=== PATIENT | female | born 1950 | race Caucasian/White ===

== ENCOUNTER 2017-02-11 10:13 | Day surgery (SDC) | payer MEDICARE, OTHER ==
[~2017-02-11 10:13] MED LIST: Acetaminophen TAB* 325 MG PO PRN; Buffered Lidocaine 0.9% SYRIN* 5 ML/SYR SYRINGE INTRADERM ONE
[2017-02-11] MEDS ORDERED: Midazolam* 1 MG/ML 5 ML VIAL (5 MG) ONE (11:19)
[2017-02-11] MEDS ORDERED: fentaNYL* 50 MCG/ML 2 ML VIAL (100 MCG VIAL) ONE (11:19)
[2017-02-11 12:31] VITALS: BP 130/80
[2017-02-11] MEDS ORDERED: Phenylephrine 2.5% OPTH.SOL* 2 ML BTL ONE (14:14)
[2017-02-11] MEDS ORDERED: Cyclopentolate 1% OPTH.SOL* 2 ML BTL ONE (14:14)
[2017-02-11] MEDS ORDERED: Lidocaine 1% MPF* 2 ML VIAL ONE (14:14)
[2017-02-11] MEDS ORDERED: Neomycin/Polymy/Dex OPHTH.OIN* 3.5 GM ONE (14:14)
[2017-02-11] MEDS ORDERED: Tropicamide 1% OPTH.SOL* BTL ONE (14:15)
[2017-02-11] MEDS ORDERED: Buffered Lidocaine 0.9% SYRIN* 5 ML/SYR SYRINGE ONE (14:15)
[2017-02-11] MEDS ORDERED: Tetracaine 0.5% OPTH.SOL 4 ML* 1 DROP BTL ONE (14:15)
[2017-02-11] MEDS ORDERED: Ketorolac 0.5% OPHTH (NF) 0.5 % 5 ML BTL ONE (14:15)
--- NOTE | 2017-02-12 00:12 | OP ---
DATE OF OPERATION: 02/11/17 [facility] DATE OF : 46 SURGEON: Dr. Ron Hinojosa. DIGITAL SALES ASSISTANT: None. ANESTHESIA: Topical with intravenous sedation. PRE-OP DIAGNOSIS: Cataract, left eye. POST-OP DIAGNOSIS: Cataract, left eye. OPERATIVE PROCEDURE: Phacoemulsification and cataract extraction with posterior chamber intraocular lens implant, left eye. COMPLICATIONS: None. BLOOD LOSS: None. DESCRIPTION OF PROCEDURE: The patient was brought to the operating room and received a small amount of intravenous sedation. A drop of Tetracaine was placed in her left eye. She was prepped and draped in the usual sterile fashion for ophthalmic surgery and attention was directed to the left eye where a speculum was placed. A paracentesis was created at the 5 o'clock position and 0.1 cc of 1 percent preservative-free Lidocaine was injected into the anterior chamber followed by DisCoVisc. The eye was digitally stabilized while a 2.75 mm keratome was used to create a triplanar clear corneal incision at the 3 o'clock position. A continuous curvilinear capsulorrhexis was created with a cystotome and Utrata forceps. BSS on a cannula was used to hydrodissect the lens from the capsule. Phacoemulsification was performed in a divide-and- conquer technique to create four fragments which were removed. Residual cortical material was removed with irrigation and aspiration. DisCoVisc was used to inflate the capsular bag and an AU00T0 23.0 diopter lens was folded and inserted into the capsular bag. DisCoVisc was removed using irrigation and aspiration. BSS on a cannula was used to hydrate the corneal stroma and seal the wound. At the end of the case the pupil was round and the lens was centered. The eye was of normal pressure and the wound was water tight. The speculum was removed and topical Maxitrol ointment was placed on the surface of the eye. The eye was closed, patched and shielded and the patient was sent to the recovery room in stable condition with post operative instructions and follow-up appointment given. [id number] #: [id number] YANIRA
== END 2017-02-11 12:25 | disposition home or self-care (01) ==
LOC: OREAST 10:13
PROVIDERS: ATTEND Ophthalmology
DX: H25.12 Age-related nuclear cataract, left eye (principal); F17.200 Nicotine dependence, unspecified, uncomplicated; Z85.3 Personal history of malignant neoplasm of breast
CPT/HCPCS: A9270-GY; J2250; J3010; V2632

== ENCOUNTER 2019-09-22 07:30 | Inpatient (IN) ==
[~2019-09-22 07:30] MED LIST changes: -Acetaminophen TAB* 325 MG PO PRN; -Buffered Lidocaine 0.9% SYRIN* 5 ML/SYR SYRINGE INTRADERM ONE; +Lactated Ringers 1000 ml BAG 1,000 ML IV SCH
[2019-09-22] MEDS ORDERED: ceFAZolin 2 GM PREMIX in ORs 2 GM/50 ML BAG ONE ×2 (12:21→20:23)
[2019-09-22] MEDS ORDERED: Levalbuterol 1.25MG/0.5ML NEB.SOL INH ONE (13:43)
[2019-09-22] MEDS ORDERED: Levalbuterol 1.25MG/0.5ML NEB.SOL ONE (14:21)
[2019-09-22] MEDS ORDERED: Bupivacaine 0.25% w/EPI 10 ML SDV ONE (14:26)
[2019-09-22] MEDS ORDERED: Bacitracin INJECTION 50,000 UNITS ONE ×2 (14:26→23:47)
[2019-09-22] MEDS ORDERED: Remifentanil 2 MG VIAL ONE ×3 (14:54→23:50)
[2019-09-22] MEDS ORDERED: Midazolam 2 mg/2 ml VIAL 1 mg/ml 2 ml VIAL (2 mg) ONE (15:18)
[2019-09-22] MEDS ORDERED: fentaNYL 100 mcg/2 ml 50 MCG/ML VIAL ONE ×2 (15:18→21:55)
[2019-09-22] MEDS ORDERED: Rocuronium 50 mg VIAL 10 mg/ml 5 ml VIAL (50 mg) ONE ×2 (15:20→15:27)
[2019-09-22] MEDS ORDERED: Lidocaine 2% JELLY 6 ML TOPICAL ONE (15:27)
[2019-09-22] MEDS ORDERED: DiMENhydriNATE IV 50 mg/ml 1 ml VIAL IV PUSH PRN (18:14)
[2019-09-22] MEDS ORDERED: Acetaminophen IV 1 GM/100ML 1,000 MG/100 ML VIAL IVPB ONE (18:14)
[2019-09-22] MEDS ORDERED: fentaNYL 100 mcg/2 ml 50 MCG/ML VIAL IV PRN (18:14)
[2019-09-22] MEDS ORDERED: Levalbuterol 1.25MG/0.5ML NEB.SOL INH PRN (18:14)
[2019-09-22] MEDS ORDERED: Naloxone 0.4 mg VIAL 0.4 mg/ml 1 ml VIAL IV PRN (18:14)
[2019-09-22] MEDS ORDERED: Ondansetron 4 mg VIAL 2 MG/ML 2 ml VIAL IV PRN (18:14)
[2019-09-22] MEDS ORDERED: Phenylephrine 40 mcg/mL 10mL (400mcg) SYRINGE ONE ×3 (22:51→22:59)
[2019-09-23] MEDS ORDERED: HYDROcodone/ACETAMIN 5/325 mg TAB PO PRN (01:33)
[2019-09-23] MEDS ORDERED: Ondansetron 4 mg VIAL 2 MG/ML 2 ml VIAL IV PRN (01:33)
[2019-09-23] MEDS ORDERED: Magnesium Hydroxide LIQ 30 ML UDC PO PRN (01:33)
[2019-09-23] MEDS ORDERED: HYDROmorphone 1 MG/1 ML SYRINGE ONE (01:36)
[2019-09-23] MEDS: HYDROmorphone 1 MG/1 ML SYRINGE IV PRN ×5 (01:40→02:00)
[2019-09-23] MEDS ORDERED: Senna TAB 8.6 mg TAB PO PRN (02:15)
[2019-09-23] MEDS ORDERED: Albuterol 2.5mg/3 ml (0.083%) NEB.SOLN INH PRN (02:17)
[2019-09-23] MEDS: HYDROcodone/ACETAMIN 5/325 mg TAB PO PRN ×3 (04:04→12:45)
[2019-09-23] MEDS: Lactated Ringers 1000 ml BAG 1,000 ML IV SCH ×2 (04:29→04:31)
[2019-09-23] MEDS: Pregabalin 25 mg CAP (*) PO SCH (08:23)
[2019-09-23] MEDS: Mometasone/Formoter 200/5 MDI INH SCH ×2 (08:24→19:34)
[2019-09-23] MEDS ORDERED: Nicotine Lozenge mini 2 MG LOZNG.MINI MT PRN (08:58)
[2019-09-23] MEDS ORDERED: Prochlorperazine 5 mg/ml 2 ml VIAL (10 mg) IV PRN (13:16)
[2019-09-23] MEDS ORDERED: Prochlorperazine 5 mg/ml 2 ml VIAL (10 mg) ONE (13:16)
[2019-09-23] MEDS ORDERED: oxyCODONE/Acetamin 5/325 mg TAB PO PRN (17:34)
[2019-09-23] MEDS: oxyCODONE/Acetamin 5/325 mg TAB PO PRN (22:46)
[2019-09-24] MEDS: Lactated Ringers 1000 ml BAG 1,000 ML IV SCH (01:28)
[2019-09-24] MEDS: oxyCODONE/Acetamin 5/325 mg TAB PO PRN (06:36)
[2019-09-24 08:24] VITALS: BP 127/67
[2019-09-24] MEDS: Pregabalin 25 mg CAP (*) PO SCH (08:27)
[2019-09-24] MEDS: Mometasone/Formoter 200/5 MDI INH SCH (08:28)
== END 2019-09-24 09:33 | DRG 460 ==
LOC: AA 11:29 → SSU 09-23 03:31
PROVIDERS: ADMIT Neurological Surgery; ATTEND Neurological Surgery

== ENCOUNTER 2019-09-24 08:30 | Inpatient (IN) ==
[2019-09-24] MEDS ORDERED: Senna TAB 8.6 mg TAB PO PRN (10:48)
[2019-09-24] MEDS: oxyCODONE/Acetamin 5/325 mg TAB PO PRN ×2 (12:54→18:28)
[2019-09-24] MEDS ORDERED: Albuterol HFA INHALER 8 gm MDI INH PRN (17:18)
[2019-09-24] MEDS: Pregabalin 25 mg CAP (*) PO SCH (20:19)
[2019-09-24] MEDS: Mometasone/Formoter 200/5 MDI INH SCH (20:22)
[2019-09-25] MEDS: oxyCODONE/Acetamin 5/325 mg TAB PO PRN ×6 (00:30→22:45)
[2019-09-25] MEDS: Mometasone/Formoter 200/5 MDI INH SCH ×2 (08:30→20:12)
[2019-09-25] MEDS: Pregabalin 25 mg CAP (*) PO SCH ×2 (08:33→20:08)
[2019-09-25] MEDS ORDERED: oxyCODONE SR 20 mg TAB (*) PO SCH (21:00)
[2019-09-26] MEDS: oxyCODONE/Acetamin 5/325 mg TAB PO PRN ×3 (03:33→14:03)
[2019-09-26] MEDS: Ondansetron ODT 4 mg TAB 4 MG TAB SL PRN ×2 (08:10→16:57)
[2019-09-26] MEDS ORDERED: diPHENhydraMINE 25 mg TAB PO ONE (08:50)
[2019-09-26] MEDS: Mometasone/Formoter 200/5 MDI INH SCH (09:10)
[2019-09-26] MEDS: Pregabalin 25 mg CAP (*) PO SCH (09:11)
[2019-09-26] MEDS ORDERED: Sodium Phosphate ADULT ENEMA 133 ML BTL PR ONE (14:00)
[2019-09-26] MEDS ORDERED: diPHENhydraMINE 25 mg TAB PO PRN (19:02)
[2019-09-26] MEDS ORDERED: Lactulose 30 ml UDC PO ONE (19:02)
[2019-09-26] MEDS ORDERED: Sodium Phosphate ADULT ENEMA 133 ML BTL PR PRN (19:04)
[2019-09-26] MEDS: D5NS 0.9% 1000 ml BAG 1,000 ML IV SCH (20:04)
[2019-09-26] MEDS: Morphine 2 MG/ML SYRINGE IV PRN (20:06)
[2019-09-27] MEDS: Mometasone/Formoter 200/5 MDI INH SCH ×3 (00:21→21:46)
[2019-09-27] MEDS: Pregabalin 25 mg CAP (*) PO SCH ×3 (00:21→21:45)
[2019-09-27] MEDS: Senna TAB 8.6 mg TAB PO SCH ×2 (00:26→21:45)
[2019-09-27] MEDS: Morphine 2 MG/ML SYRINGE IV PRN (02:50)
[2019-09-27] MEDS: Ondansetron ODT 4 mg TAB 4 MG TAB SL PRN (03:04)
[2019-09-27] MEDS: oxyCODONE/Acetamin 5/325 mg TAB PO PRN ×4 (05:12→22:40)
[2019-09-27 06:03] LABS: ABS Lymphocytes 0.5 10^3/ul (1.0-4.8); ABS Monocytes 0.3 10^3/ul (0-0.8); Eosinophil % 1.3 %; Hematocrit 32 % (35-47); Lymphocyte % 13.3 %; Mean Corpuscular HGB Conc 34 g/dL (31-36); Mean Corpuscular Hemoglobin 33 pg (27-31); Mean Corpuscular Volume 97 fL (80-97); Mean Platelet Volume 7.5 fL (7.4-10.4); Platelet Count 214 10^3/uL (150-450); Red Blood Count 3.33 10^6 /uL (3.70-4.87); Red Cell Distribution Width 13 % (10-15); White Blood Count 3.6 10^3/uL (3.5-10.8)
[2019-09-27 06:08] LABS: Albumin 3.3 g/dL (3.2-5.2); Calcium 8.7 mg/dL (8.6-10.3); Potassium 4.3 mmol/L (3.5-5.0); Total Bilirubin 0.3 mg/dL (0.2-1.0)
[2019-09-27 06:14] LABS: Albumin/Globulin Ratio 1.4 (1-3); BUN/Creatinine Ratio 29.2 (8-20); EGFR African American 154.3 (>60); EGFR Non-African American 127.5 (>60); Globulin 2.3 g/dL (2-4); Total Protein 5.6 g/dL (6.4-8.9)
[2019-09-27] MEDS: D5NS 0.9% 1000 ml BAG 1,000 ML IV SCH (09:51)
[2019-09-27] MEDS: Lactulose 30 ml UDC PO PRN ×2 (11:49→21:47)
[2019-09-27] MEDS ORDERED: Morphine 2 MG/ML SYRINGE IV PRN (15:57)
[2019-09-27] MEDS: Magnesium Hydroxide LIQ 30 ML UDC PO PRN (18:15)
[2019-09-28] MEDS: D5NS 0.9% 1000 ml BAG 1,000 ML IV SCH (00:03)
[2019-09-28] MEDS: oxyCODONE/Acetamin 5/325 mg TAB PO PRN ×4 (05:40→20:44)
[2019-09-28] MEDS: Lactulose 30 ml UDC PO PRN (09:40)
[2019-09-28] MEDS: Mometasone/Formoter 200/5 MDI INH SCH ×2 (09:40→20:40)
[2019-09-28] MEDS: Pregabalin 25 mg CAP (*) PO SCH ×2 (09:41→20:40)
[2019-09-28] MEDS ORDERED: Polyethylene Glycol 3350 17 GM PACKET PO PRN (18:31)
[2019-09-28] MEDS: Senna TAB 8.6 mg TAB PO SCH (20:43)
[2019-09-29] MEDS: Mometasone/Formoter 200/5 MDI INH SCH ×2 (07:32→20:15)
[2019-09-29] MEDS: Pregabalin 25 mg CAP (*) PO SCH ×2 (07:33→20:14)
[2019-09-29] MEDS: oxyCODONE/Acetamin 5/325 mg TAB PO PRN ×2 (10:50→20:13)
[2019-09-29] MEDS: Magnesium Hydroxide LIQ 30 ML UDC PO PRN (15:54)
[2019-09-29] MEDS: Senna TAB 8.6 mg TAB PO SCH (20:13)
[2019-09-30] MEDS: oxyCODONE/Acetamin 5/325 mg TAB PO PRN ×3 (03:12→22:47)
[2019-09-30 05:42] LABS: BUN/Creatinine Ratio 12.2 (8-20); Calcium 8.8 mg/dL (8.6-10.3); EGFR African American 150.6 (>60); EGFR Non-African American 124.5 (>60); Potassium 4.1 mmol/L (3.5-5.0)
[2019-09-30] MEDS: Mometasone/Formoter 200/5 MDI INH SCH ×2 (10:06→20:02)
[2019-09-30] MEDS: Pregabalin 25 mg CAP (*) PO SCH ×2 (10:06→19:55)
[2019-09-30] MEDS: Lidocaine PATCH 5% PATCH TRANSDERM SCH (12:25)
[2019-09-30] MEDS: Senna TAB 8.6 mg TAB PO SCH (19:55)
[2019-09-30] MEDS: Lidocaine Patch REMOVE PATCH PATCH OFF SCH (21:11)
[2019-10-01] MEDS: Mometasone/Formoter 200/5 MDI INH SCH ×2 (07:37→20:18)
[2019-10-01] MEDS: Pregabalin 25 mg CAP (*) PO SCH ×2 (07:37→20:15)
[2019-10-01] MEDS: Lidocaine PATCH 5% PATCH TRANSDERM SCH (10:28)
[2019-10-01] MEDS: oxyCODONE/Acetamin 5/325 mg TAB PO PRN ×3 (11:03→22:57)
[2019-10-01] MEDS: Magnesium Hydroxide LIQ 30 ML UDC PO PRN (16:06)
[2019-10-01] MEDS: Senna TAB 8.6 mg TAB PO SCH (20:14)
[2019-10-01] MEDS: Lidocaine Patch REMOVE PATCH PATCH OFF SCH (21:49)
[2019-10-02] MEDS: oxyCODONE/Acetamin 5/325 mg TAB PO PRN ×2 (05:00→23:27)
[2019-10-02] MEDS: Lidocaine PATCH 5% PATCH TRANSDERM SCH (10:08)
[2019-10-02] MEDS: Pregabalin 25 mg CAP (*) PO SCH ×2 (10:08→20:54)
[2019-10-02] MEDS: Mometasone/Formoter 200/5 MDI INH SCH ×2 (10:09→20:54)
[2019-10-02] MEDS: Ondansetron ODT 4 mg TAB 4 MG TAB SL PRN (12:10)
[2019-10-02] MEDS: Senna TAB 8.6 mg TAB PO SCH (20:54)
[2019-10-02] MEDS: Lidocaine Patch REMOVE PATCH PATCH OFF SCH (21:02)
[2019-10-03] MEDS: Mometasone/Formoter 200/5 MDI INH SCH ×2 (08:32→20:28)
[2019-10-03] MEDS: Lidocaine PATCH 5% PATCH TRANSDERM SCH (08:32)
[2019-10-03] MEDS: Pregabalin 25 mg CAP (*) PO SCH ×2 (08:33→20:23)
[2019-10-03] MEDS: oxyCODONE/Acetamin 5/325 mg TAB PO PRN (18:25)
[2019-10-03] MEDS: Senna TAB 8.6 mg TAB PO SCH (20:23)
[2019-10-03] MEDS: Lidocaine Patch REMOVE PATCH PATCH OFF SCH (20:24)
[2019-10-04 05:57] LABS: ABS Eosinophils 0.1 10^3/ul (0-0.6); ABS Lymphocytes 1.2 10^3/ul (1.0-4.8); ABS Monocytes 0.5 10^3/ul (0-0.8); Eosinophil % 2.3 %; Hematocrit 33 % (35-47); Hemoglobin 11.6 g/dL (12.0-16.0); Lymphocyte % 25.5 %; Mean Corpuscular HGB Conc 35 g/dL (31-36); Mean Corpuscular Hemoglobin 33 pg (27-31); Mean Corpuscular Volume 95 fL (80-97); Mean Platelet Volume 6.1 fL (7.4-10.4); Nucleated Red Blood Cells % 0.2; Platelet Count 542 10^3/uL (150-450); Red Blood Count 3.51 10^6 /uL (3.70-4.87); Red Cell Distribution Width 12 % (10-15); White Blood Count 4.8 10^3/uL (3.5-10.8)
[2019-10-04 06:13] LABS: Albumin 3.4 g/dL (3.2-5.2); Albumin/Globulin Ratio 1.4 (1-3); BUN/Creatinine Ratio 23.1 (8-20); Calcium 9.3 mg/dL (8.6-10.3); EGFR African American 140.7 (>60); EGFR Non-African American 116.2 (>60); Globulin 2.5 g/dL (2-4); Potassium 4.3 mmol/L (3.5-5.0); Total Bilirubin 0.4 mg/dL (0.2-1.0); Total Protein 5.9 g/dL (6.4-8.9)
[2019-10-04] MEDS: Mometasone/Formoter 200/5 MDI INH SCH ×2 (07:32→21:59)
[2019-10-04] MEDS: Pregabalin 25 mg CAP (*) PO SCH ×2 (07:34→22:03)
[2019-10-04] MEDS: Lidocaine PATCH 5% PATCH TRANSDERM SCH (11:17)
[2019-10-04] MEDS: oxyCODONE/Acetamin 5/325 mg TAB PO PRN (19:59)
[2019-10-04] MEDS: Senna TAB 8.6 mg TAB PO SCH (21:55)
[2019-10-04] MEDS: Lidocaine Patch REMOVE PATCH PATCH OFF SCH (21:59)
[2019-10-05] MEDS: Lidocaine PATCH 5% PATCH TRANSDERM SCH (09:53)
[2019-10-05] MEDS: Pregabalin 25 mg CAP (*) PO SCH ×2 (09:54→21:48)
[2019-10-05] MEDS: Mometasone/Formoter 200/5 MDI INH SCH ×2 (09:54→20:02)
[2019-10-05] MEDS: oxyCODONE/Acetamin 5/325 mg TAB PO PRN (19:16)
[2019-10-05] MEDS: Senna TAB 8.6 mg TAB PO SCH (20:02)
[2019-10-05] MEDS: Lidocaine Patch REMOVE PATCH PATCH OFF SCH (21:48)
[2019-10-06] MEDS: Mometasone/Formoter 200/5 MDI INH SCH ×2 (09:14→20:08)
[2019-10-06] MEDS: Pregabalin 25 mg CAP (*) PO SCH ×2 (09:16→20:02)
[2019-10-06] MEDS: Lidocaine PATCH 5% PATCH TRANSDERM SCH (09:56)
[2019-10-06] MEDS: oxyCODONE/Acetamin 5/325 mg TAB PO PRN (13:39)
[2019-10-06] MEDS: Senna TAB 8.6 mg TAB PO SCH (20:02)
[2019-10-06] MEDS: Lidocaine Patch REMOVE PATCH PATCH OFF SCH (22:29)
[2019-10-07] MEDS: oxyCODONE/Acetamin 5/325 mg TAB PO PRN (04:49)
[2019-10-07 04:58] VITALS: BP 128/64
[2019-10-07] MEDS: Mometasone/Formoter 200/5 MDI INH SCH (10:11)
[2019-10-07] MEDS: Pregabalin 25 mg CAP (*) PO SCH (10:11)
[2019-10-07] MEDS: Lidocaine PATCH 5% PATCH TRANSDERM SCH (10:11)
== END 2019-10-07 11:30 | disposition home health service (06) | DRG 560 ==
LOC: PMRU 09:38
PROVIDERS: ADMIT Physical Medicine & Rehabilitation; ATTEND Physical Medicine & Rehabilitation